=== PATIENT | female | born 1990 | race Caucasian/White ===

== ENCOUNTER 2022-01-29 00:29 | Emergency (ER) | payer BC, MEDICAID, OTHER ==
[~2022-01-29] VITALS: Ht 157.5 cm; Wt 59.0 kg
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
--- NOTE | 2022-01-29 01:14 | NUR ---
DR. MYRA PARADA AT PT'S BEDSIDE
[2022-01-29] MEDS ORDERED: FLUORESCEIN SODIUM OPHTH 1 EA STRIP ONE (01:15)
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
[2022-01-29] MEDS ORDERED: CIPR2.5D14 RIGHTEYE (01:26)
[2022-01-29] MEDS ORDERED: TETRAcaine 5 ML BOTTLE EACHEYE ONE (01:30)
[2022-01-29] MEDS ORDERED: FLUORESCEIN SODIUM OPHTH 1 EA STRIP OP ONE (01:30)
[2022-01-29 01:32] VITALS: BP 115/57
--- NOTE | 2022-01-29 01:32 | NUR ---
Patient discharged to home in stable condition. RX Written and verbal after care instructions given. Patient verbalizes understanding of instruction. pt ambulatory with a steady gait
== END 2022-01-29 01:33 | disposition home or self-care (01) ==
LOC: ER 00:38
DX: S05.02XA Injury of conjunctiva and corneal abrasion without foreign body, left eye, initial encounter (principal); S05.01XA Injury of conjunctiva and corneal abrasion without foreign body, right eye, initial encounter; T65.891A Toxic effect of other specified substances, accidental (unintentional), initial encounter; Y08.89XA Assault by other specified means, initial encounter; Y93.89 Activity, other specified; Y92.89 Other specified places as the place of occurrence of the external cause; Y99.8 Other external cause status